=== PATIENT | female | born 1935 | race Caucasian/White ===

== ENCOUNTER 2016-06-12 06:42 | Emergency (ER) | payer OTHER ==
[2016-06-12 06:46] VITALS: BP 142/71; BMI 24.2
[2016-06-12] MEDS ORDERED: NS 1000 ML 1,000 ML ONE (06:59)
[2016-06-12] MEDS ORDERED: MORPHINE SULFATE INJ 4 MG IVP ONE (07:07)
[2016-06-12] MEDS ORDERED: ZOFRAN INJ 4 MG VIAL IVP ONE (07:07)
[2016-06-12] MEDS ORDERED: NS 1000 ML 1,000 ML IV ONE (07:14)
[2016-06-12] MEDS ORDERED: ZOFRAN INJ 4 MG VIAL ONE (07:17)
[2016-06-12] MEDS ORDERED: MORPHINE SULFATE INJ 4 MG ONE (07:17)
--- NOTE | 2016-06-12 07:17 | DR.GENAD ---
HPI - PCP Primary Care Physician: OFELIA - HPI Comment HPI Comment: TOOK PHENERGAN BEFORE COMING. WEAK AND DROUSY. DENIES ABDOMINAL PAIN. HAVE MALAISE. - Complaint/Symptoms Chief Complaint Doctors Comments: FEVER, HEADACHE, N/V TIMES ONE DAY. Chief Complaint:: NAUSEA AND FEVER/ HEADACHE - Nurses notes reviewed Nurses Notes Review: Yes - Source History Provided: Patient, Family Member - Mode of Arrival Mode of Arrival: Wheelchair - Timing Onset of Chief Complaint: 06/11/16 Came on: Suddenly - Duration Duration: Constant Duration: Days - Severity Severity: Moderate <JUAN R ECHEVARRIA - Last Filed: 06/12/16 09:03> PMH - PMH Past Medical History: No Past Surgical History: Yes - Family History History of Family Medical Conditions: No - Social History Does patient currently use any type of tobacco product: No Have you used tobacco products in the last 12 months: No Type of Tobacco Use: None Does any household member use tobacco: No Alcohol Use: None Do you use any recreational Drugs:: No Lives Where: Home - infectious screening In the last 2 months have you had wt loss of >10#?: NO Have you had fever, night sweats or hemotysis?: No Have you traveled outside the country in the last 6 months?: No Isolation: Standard <JUAN R ECHEVARRIA - Last Filed: 06/12/16 09:03> ROS - Review of Systems Constitutional: Fever, Weakness, Fatigue, Loss of Appetite Eyes: No Symptoms Reported ENTM: negative: Ear Pain, Throat Pain Respiratoy: Short of Breath. negative: Productive Cough, Non-Productive Cough, Wheezing, Hemoptysis Cardiovascular: Chest Pain, Palpitations. negative: Edema, Syncope Gastrointestinal/Abdominal: Nausea, Vomiting. negative: Constipation, Diarrhea Genitourinary: negative: Dysuria, Frequency, Hematuria Neurological: Headache, Weakness, Dizziness Musculoskeletal: Muscle Pain Integumentary: Dryness Hematologic/Lymphatic: Easy Bruising Endocrine: No Symptoms Reported All Other Systems: Reviewed and Negative <JUAN R ECHEVARRIA - Last Filed: 06/12/16 09:03> PE - General Limitations: No Limitations, Other (WEAK) General Appearance: Alert - Head Head Exam: Atraumatic - Eyes Eye exam: Normal Appearance - ENT ENT Exam: Normal External Ear Exam External Ear Exam: Normal External Inspection TM/Canal Exam: Bilateral Normal Nose Exam: Normal Nose Exam Mouth Exam: Normal Inspection - Neck Neck Exam: Trachea Midline - Chest Chest Inspection: Normal Inspection - Respiratory Respiratory Exam: Chest Wall Tenderness Respiratory Exam: Bilateral Rhonchi, Lower Rhonchi - Cardiovascular Cardiovascular Exam: Normal Rhythm, Tachycardia, Normal Heart Sounds - Abdominal Exam Abdominal Exam: Normal Bowel Sounds, Soft. negative: Tenderness - Extremities Extremities Exam: Normal Inspection - Back Back Exam: Normal Inspection - Neurologic Neurological Exam: Alert, Oriented X3 - Psychiatric Psychiatric Exam: Normal Affect, Normal Mood - Skin Skin Exam: Dry <JUAN R ECHEVARRIA - Last Filed: 06/12/16 09:03> - Neck Neck Exam: Normal Inspection, Full ROM. negative: Meningismus - Chest Chest Inspection: Symmetric Chest Wall Rise - Respiratory Respiratory Exam: Normal Lung Sounds Bilat <RAPHAEL CORDOVA - Last Filed: 06/12/16 09:49> - Vital Signs Vitals: Temperature 102.1 F Pulse Rate 117 Respiratory Rate 20 Blood Pressure 142/71 O2 Sat by Pulse Oximetry 95 (JUAN R ECHEVARRIA) (RAPHAEL CORDOVA) MDM - Additional Information Additional Information Obtained From: Family - Differential Diagnosis Differential Diagnosis: FEVER, PNEUMONIA, UTI, <JUAN R ECHEVARRIA - Last Filed: 06/12/16 09:03> Course - Treatment Treatment: SEE ORDERS - Education/Counseling Education/Counseling: Patient, Family Educated On: Treatment <JUAN R ECHEVARRIA - Last Filed: 06/12/16 09:03> - Reevaluation 1st: Improved <RAPHAEL CORDOVA - Last Filed: 06/12/16 09:49> ROR - Labs Reviewed Laboratory Results Reviewed?: Yes Result Diagrams: 06/12/16 07:15 06/12/16 07:15 - XRAY XRAY Interpreted by: Radiologist XRAY Findings: REPORT DISCUSS WITH PATIENT AND HER DAUGHTER IN- LAW. - EKG Rhythm: NSR (EKG NOTED) <JUAN R ECHEVARRIA - Last Filed: 06/12/16 09:03> - Labs Reviewed Result Diagrams: 06/12/16 07:15 06/12/16 07:15 <RAPHAEL CORDOVA - Last Filed: 06/12/16 09:49> - Labs Reviewed Laboratory: WBC 14.5 X10^3/uL (3.6-10.0) H 06/12/16 07:15 RBC 4.50 X10^6/uL (3.5-5.4) 06/12/16 07:15 Hgb 13.7 g/dL (12.0-16.0) 06/12/16 07:15 Hct 41.6 % (36.0-47.0) 06/12/16 07:15 MCV 92.5 fL (80.0-100.0) 06/12/16 07:15 MCH 30.6 pg (27.0-34.0) 06/12/16 07:15 MCHC 33.1 g/dL (33.0-35.0) 06/12/16 07:15 RDW 14.5 % (11.6-16.5) 06/12/16 07:15 Plt Count 169 X10^3/uL (150.0-450.0) 06/12/16 07:15 MPV 8.3 fL (7.4-11.0) 06/12/16 07:15 Neut % 86.7 % (42.0-75.0) H 06/12/16 07:15 Lymph % 6.1 % (21.0-51.0) L 06/12/16 07:15 [place] % 6.7 % (0.0-13.0) 06/12/16 07:15 Eos % 0.1 % (0.9-2.9) L 06/12/16 07:15 Baso % 0.4 % (0.2-1.0) 06/12/16 07:15 Neut # 12.6 x10^3/uL (2.2-4.8) H 06/12/16 07:15 Lymph # 0.9 X10^3/uL (1.3-2.9) L 06/12/16 07:15 [place] # 1.0 x10^3/uL (0.3-0.8) H 06/12/16 07:15 Eos # 0.0 x10^3/uL (0.0-0.2) 06/12/16 07:15 Baso # 0.1 X10^3/uL (0.0-0.1) 06/12/16 07:15 Absolute Nucleated RBC 0.0 /100WBC 06/12/16 07:15 Sodium 139 mmol/L (136-145) 06/12/16 07:15 Corrected Sodium 140 mmol/L (136-145) 06/12/16 07:15 Potassium 3.6 mmol/L (3.5-5.1) 06/12/16 07:15 Chloride 100 mmol/L (98-107) 06/12/16 07:15 Carbon Dioxide 30.5 mmol/L (21-32) 06/12/16 07:15 BUN 13 mg/dL (7-18) 06/12/16 07:15 Creatinine 0.95 mg/dL (0.55-1.02) 06/12/16 07:15 Est GFR (MDRD) Af Amer > 60 (>60) 06/12/16 07:15 Est GFR (MDRD) Non-Af > 60 (>60) 06/12/16 07:15 Glucose 125 mg/dL (65-99) H 06/12/16 07:15 Calcium 8.9 mg/dL (8.5-10.1) 06/12/16 07:15 Corrected Calcium TNP 06/12/16 07:15 Total Bilirubin 0.60 mg/dL (0.2-1.0) 06/12/16 07:15 AST 18 Units/L (15-37) 06/12/16 07:15 ALT 23 Units/L (12-78) 06/12/16 07:15 Alkaline Phosphatase 84 Units/L (46-116) 06/12/16 07:15 Creatine Kinase 64 Units/L (26-192) 06/12/16 07:15 CK-MB (CK-2) < 1.0 ng/mL (0-4.0) 06/12/16 07:15 CK/CKMB % Calc 1.6 % (<4) 06/12/16 07:15 Troponin I < 0.02 ng/mL (0-1.5) 06/12/16 07:15 Total Protein 8.0 g/dL (6.4-8.2) 06/12/16 07:15 Albumin 3.9 g/dL (3.4-5.0) 06/12/16 07:15 Globulin 4.1 g/dL (2.5-4.5) 06/12/16 07:15 Albumin/Globulin Ratio 1.0 Ratio (1.1-2.1) L 06/12/16 07:15 Amylase 30 Units/L (25-115) 06/12/16 07:15 Lipase 54 Units/L (73-393) L 06/12/16 07:15 Specimen Type Clean catch urine 06/12/16 07:39 Urine Color Pale yellow (YELLOW) 06/12/16 07:39 Urine Appearance Clear (CLEAR) 06/12/16 07:39 Urine pH 8.0 (5.0 - 8.0) 06/12/16 07:39 Ur Specific [place] 1.015 (1.000-1.030) 06/12/16 07:39 Urine Protein 2+ (NEGATIVE) 06/12/16 07:39 Urine Glucose (UA) Negative (NEGATIVE) 06/12/16 07:39 Urine Ketones Negative (NEGATIVE) 06/12/16 07:39 Urine Occult Blood Negative (NEGATIVE) 06/12/16 07:39 Urine Nitrite Negative (NEGATIVE) 06/12/16 07:39 Urine Bilirubin Negative (NEGATIVE) 06/12/16 07:39 Urine Urobilinogen Normal (NORMAL) 06/12/16 07:39 Ur Leukocyte Esterase Negative (NEGATIVE) 06/12/16 07:39 Urine RBC 0-1 /HPF (NEGATIVE) 06/12/16 07:39 Urine WBC 0-1 /HPF (NEGATIVE) 06/12/16 07:39 Ur Squamous Epith Cells Rare /HPF (NEGATIVE) 06/12/16 07:39 Urine Bacteria Negative /HPF (NEGATIVE) 06/12/16 07:39 Ur Culture Indicated? No/not indicated 06/12/16 07:39 Influenza A (H1N1) PCR Not detected (NOT DETECT) 06/12/16 07:58 Influenza Type A (PCR) Negative (NEGATIVE) 06/12/16 07:58 Influenza Type B (PCR) Negative (NEGATIVE) 06/12/16 07:58 (RAPHAEL CORDOVA) <JUAN R ECHEVARRIA - Last Filed: 06/12/16 09:03> <RAPHAEL CORDOVA - Last Filed: 06/12/16 09:49> - Diagnosis Discharge Problem: Systemic viral illness - Discharge Plan Condition: Stable - Follow ups/Referrals Follow ups/Referrals: Jonathan Loredo [Primary Care Provider] - 3 days - Instructions
[2016-06-12] MEDS ORDERED: TORADOL 30 MG VIAL IVP ONE (07:18)
[2016-06-12] MEDS ORDERED: PEPCID 20 MG IV PREMIX* 20 MG/50 ML BAG IV ONE ×2 (07:18→07:20)
[2016-06-12] MEDS ORDERED: TORADOL 30 MG VIAL ONE (07:20)
[2016-06-12 07:35] LABS: BASOPHILS # (AUTO) 0.1 X10^3/uL (0.0-0.1); BASOPHILS % (AUTO) 0.4 % (0.2-1.0); EOSINOPHILS % (AUTO) 0.1 % (0.9-2.9); HEMATOCRIT 41.6 % (36.0-47.0); HEMOGLOBIN 13.7 g/dL (12.0-16.0); LYMPHOCYTES # (AUTO) 0.9 X10^3/uL (1.3-2.9); LYMPHOCYTES % (AUTO) 6.1 % (21.0-51.0); MEAN CORPUSCULAR HEMOGLOBIN 30.6 pg (27.0-34.0); MEAN CORPUSCULAR HGB CONC 33.1 g/dL (33.0-35.0); MEAN CORPUSCULAR VOLUME 92.5 fL (80.0-100.0); MEAN PLATELET VOLUME 8.3 fL (7.4-11.0); MONOCYTES % (AUTO) 6.7 % (0.0-13.0); NEUTROPHILS # (AUTO) 12.6 x10^3/uL (2.2-4.8); NEUTROPHILS % (AUTO) 86.7 % (42.0-75.0); PLATELET COUNT 169 X10^3/uL (150.0-450.0); RED CELL DISTRIBUTION WIDTH 14.5 % (11.6-16.5); WHITE BLOOD COUNT 14.5 X10^3/uL (3.6-10.0)
[2016-06-12 07:44] LABS: ALANINE AMINOTRANSFERASE 23 Units/L (12-78); ALBUMIN 3.9 g/dL (3.4-5.0); ALKALINE PHOSPHATASE 84 Units/L (46-116); AMYLASE 30 Units/L (25-115); ASPARTATE AMINO TRANSFERASE 18 Units/L (15-37); BLOOD UREA NITROGEN 13 mg/dL (7-18); CALCIUM 8.9 mg/dL (8.5-10.1); CARBON DIOXIDE 30.5 mmol/L (21-32); CHLORIDE 100 mmol/L (98-107); COR NA(FOR HYPERGLY) 140 mmol/L (136-145); CREATININE 0.95 mg/dL (0.55-1.02); GLUCOSE 125 mg/dL (65-99); LIPASE 54 Units/L (73-393); SODIUM 139 mmol/L (136-145); eGFR BLACK RACES > 60 (>60); eGFR NON BLACK RACES > 60 (>60)
[2016-06-12] MEDS ORDERED: TYLENOL 500 MG TAB EXTRA STRENGTH PO ONE (07:45)
[2016-06-12] MEDS ORDERED: TYLENOL 500 MG TAB EXTRA STRENGTH ONE (07:47)
[2016-06-12 07:53] LABS: BILIRUBIN,URINE NEGATIVE (NEGATIVE); BLOOD/HEMOGLOBIN,URINE NEGATIVE (NEGATIVE); GLUCOSE, URINE NEGATIVE (NEGATIVE); KETONES,URINE NEGATIVE (NEGATIVE); LEUKOCYTE ESTERASE ,URINE NEGATIVE (NEGATIVE); NITRITES,URINE NEGATIVE (NEGATIVE); PROTEIN,URINE 2+ (NEGATIVE); UROBILINOGEN,URINE NORMAL (NORMAL)
--- NOTE | 2016-06-12 07:55 | RAD ---
HISTORY: Chest pain, fever, body aches, weakness Study: Single-view chest, done portably Comparison: No priors Technique: patient is rotated towards the right side. Findings: Trachea is midline. There is cardiomegaly with aortic uncoiling. Lungs and pleural spaces are clear. There are surgical clips present in the right axilla. Osseous structures are intact. IMPRESSION: Hypertensive configuration. No acute cardiopulmonary disease. Reported By:
[2016-06-12 08:03] LABS: APPEARANCE,URINE CLEAR (CLEAR); BACTERIA,URINE NEGATIVE /HPF (NEGATIVE); COLOR,URINE PALE YELLOW (YELLOW); RBC,URINE 0-1 /HPF (NEGATIVE); SQUAMOUS EPITHELIAL CELL,UR RARE /HPF (NEGATIVE)
[2016-06-12 08:07] LABS: CKMB % 1.6 % (<4); CREATINE KINASE 64 Units/L (26-192); CREATINE KINASE MB < 1.0 ng/mL (0-4.0); TROPONIN I < 0.02 ng/mL (0-1.5)
== END 2016-06-12 09:55 | disposition home or self-care (01) ==
LOC: ER 06:58
DX: B34.9 Viral infection, unspecified (principal)
CPT/HCPCS: 36415; 71010; 80053; 81001; 82150; 82550; 82553; 83690; 84484; 85025; 87040; 87502; 87503; 93005; 96365; 96374; 96375; 99283; A4222; S0028; J1885; J2270; J2405

== ENCOUNTER 2017-01-25 18:12 | Emergency (ER) | payer OTHER ==
[2017-01-25 18:34] VITALS: BP 154/77; BMI 25.7
--- NOTE | 2017-01-25 18:47 | DR.GENAD ---
HPI - PCP Primary Care Physician: OFELIA - Complaint/Symptoms Chief Complaint:: PT C/O LACERATION TO RT EYE LID AND PAIN IN RT WRIST. PT FELL FACE FIRST AT [facility]. - Source History Provided: Patient - Mode of Arrival Mode of Arrival: EMS - Timing Onset of Chief Complaint: 01/25/17 PMH - PMH Past Medical History: Yes Past Medical History: Hypertension Past Surgical History: Yes Surgical History: Ortho Surgery - Family History History of Family Medical Conditions: No - Social History Does any household member use tobacco: No Alcohol Use: None Do you use any recreational Drugs:: No Lives With: Alone Lives Where: Home - infectious screening In the last 2 months have you had wt loss of >10#?: NO Have you had fever, night sweats or hemotysis?: No Have you traveled outside the country in the last 6 months?: No Isolation: Standard ROS - Review of Systems Eyes: No Symptoms Reported ENTM: No Symptoms Reported Respiratoy: No Symptoms Reported Cardiovascular: No Symptoms Reported Gastrointestinal/Abdominal: No Symptoms Reported Genitourinary: No Symptoms Reported Neurological: No Symptoms Reported Musculoskeletal: See HPI Integumentary: Wound (A 3cm superficial laceration of right eyelid) Hematologic/Lymphatic: No Symptoms Reported Endocrine: No Symptoms Reported Psychiatric: No Symptoms Reported All Other Systems: Reviewed and Negative PE - Vital Signs Vitals: Temperature 97.6 F Pulse Rate 79 Respiratory Rate 18 Blood Pressure 154/77 O2 Sat by Pulse Oximetry 95 - General Limitations: No Limitations General Appearance: Alert, In No Apparent Distress - Head Head Exam: Normal Inspection, Atraumatic - Eyes Eye exam: Other (right outer eye lid with a 3cm superficial laceration) - ENT ENT Exam: Normal Exam External Ear Exam: Normal External Inspection TM/Canal Exam: Bilateral Normal Nose Exam: Normal Nose Exam Mouth Exam: Normal Inspection Throat Exam: Normal Inspection - Neck Neck Exam: Normal Inspection - Chest Chest Inspection: Normal Inspection - Respiratory Respiratory Exam: Normal Lung Sounds Bilat Respiratory Exam: Bilateral Clear to Auscultation - Cardiovascular Cardiovascular Exam: Regular Rate, Normal Rhythm - Abdominal Exam Abdominal Exam: Normal Inspection Abdominal Tenderness: negative: RUQ, RLQ, LUQ, LLQ, Epigastrium, Suprapubic, Diffuse, Mild, Moderate, Severe, Other - Extremities Extremities Exam: Normal Inspection, Full ROM - Back Back Exam: Normal Inspection, Full ROM - Neurologic Neurological Exam: Alert, Oriented X3, CN II-XII Intact - Psychiatric Psychiatric Exam: Normal Affect - Skin Skin Exam: Warm, Dry, Intact Course - Reevaluation 1st: Improved ROR - XRAY XRAY Interpreted by: Radiologist (CT Facial bones: Right periorbital swelling without acute fracture; X Ray right wrist: no acute wrist injury identified. Widening of the navivular lunate space is consistant with old trauma and ligamentous disruption. 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.) Procedures - Laceration/Wound Repair Right Elbow Wound Length (cm): 3 Wound's Depth, Shape: Superficial, Linear Wound Explored: clean Betadine Prep?: Yes Anesthesia: 1% Lidocaine (3) Wound Debrided: minimal Wound Repaired With: sutures Suture Size/Type: 5:0, [place] (4) - Diagnosis Discharge Problem: Right eye lid laceration, right forehead contusion Contusion of wrist, right Qualifiers: Encounter type: initial encounter Qualified Code(s): S60.211A - Contusion of right wrist, initial encounter - Discharge Plan Condition: Stable - Follow ups/Referrals Follow ups/Referrals: Jonathan Loredo [Primary Care Provider] - 3 days - Instructions
--- NOTE | 2017-01-25 19:09 | RAD ---
Examination: Right wrist, three views History: Fell Findings: No acute fracture or dislocation. However there is widening of the scapholunate space and n arrowing of the radiocarpal joint. There is arthritic deformity at the 1st CMC joint, as well as the articulation between the distal scaphoid and the trapezium/trapezoid. There is normal appearance of t he pronator fat plane at the distal radius. Impression: No acute wrist injury identified. Widening of the navicular-lunate space is consistent wi th old trauma and ligamentous disruption. 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 Reported By:
--- NOTE | 2017-01-25 19:18 | CT ---
HISTORY: Fall, laceration above right eye Study: CT facial bones Comparison: None Technique: Multiple axial images of the facial structures were obtained. Dose reduction techniques i ncluding Automated Exposure Control (AEC) and adjustment of mA and kV were utilized. Findings: The visualized intracranial structures are unremarkable. There is soft tissue swelling lateral to the right orbit. The bony orbits appear intact. Globes appear symmetric without injury or proptosis. The visualized paranasal sinuses and mastoid air cells are clear. The mandible appears intact. Streak ar tifact limits evaluation of the oropharynx. The skull base and visualized portions of the cervical sp ine are intact. IMPRESSION: 1. Right periorbital swelling without acute fracture. Reported By:
[2017-01-25] MEDS ORDERED: NEOSPORIN OINT ONE (19:49)
[2017-01-25] MEDS ORDERED: ADACEL TDaP IM ONE (19:50)
[2017-01-25] MEDS ORDERED: NEOSPORIN OINT TOP ONE (19:58)
== END 2017-01-25 20:23 | disposition home or self-care (01) ==
LOC: ER 18:12
PROC: 0WQ20ZZ Repair Face, Open Approach (ICD-10-PCS; principal; 2017-01-25)
DX: S01.111A Laceration without foreign body of right eyelid and periocular area, initial encounter (principal); S00.83XA Contusion of other part of head, initial encounter; S60.211A Contusion of right wrist, initial encounter; W19.XXXA Unspecified fall, initial encounter; Y92.512 Supermarket, store or market as the place of occurrence of the external cause
CPT/HCPCS: 70486; 73100; 90471; 99283

== ENCOUNTER 2017-07-24 19:10 | Observation (INO) | payer OTHER ==
[2017-07-24] MEDS ORDERED: ZOFRAN INJ 4 MG VIAL IVP PRN (20:05)
[2017-07-24 20:31] LABS: BASOPHILS % (AUTO) 0.3 % (0.2-1.0); EOSINOPHILS # (AUTO) 0.3 x10^3/uL (0.0-0.2); EOSINOPHILS % (AUTO) 4.1 % (0.9-2.9); HEMATOCRIT 40.3 % (36.0-47.0); HEMOGLOBIN 13.7 g/dL (12.0-16.0); LYMPHOCYTES # (AUTO) 0.6 X10^3/uL (1.3-2.9); LYMPHOCYTES % (AUTO) 8.9 % (21.0-51.0); MEAN CORPUSCULAR HEMOGLOBIN 31.8 pg (27.0-34.0); MEAN CORPUSCULAR VOLUME 93.5 fL (80.0-100.0); MEAN PLATELET VOLUME 8.4 fL (7.4-11.0); MONOCYTES # (AUTO) 0.5 x10^3/uL (0.3-0.8); MONOCYTES % (AUTO) 6.9 % (0.0-13.0); NEUTROPHILS # (AUTO) 5.6 x10^3/uL (2.2-4.8); NEUTROPHILS % (AUTO) 79.8 % (42.0-75.0); PLATELET COUNT 169 X10^3/uL (150.0-450.0); RED BLOOD COUNT 4.31 X10^6/uL (3.5-5.4); RED CELL DISTRIBUTION WIDTH 13.7 % (11.6-16.5)
[2017-07-24 20:38] LABS: ALANINE AMINOTRANSFERASE 21 Units/L (12-78); ALBUMIN 3.7 g/dL (3.4-5.0); ALKALINE PHOSPHATASE 103 Units/L (46-116); AMYLASE 82 Units/L (25-115); ASPARTATE AMINO TRANSFERASE 18 Units/L (15-37); BLOOD UREA NITROGEN 26 mg/dL (7-18); CARBON DIOXIDE 29.6 mmol/L (21-32); CHLORIDE 102 mmol/L (98-107); COR NA(FOR HYPERGLY) 140 mmol/L (136-145); CREATININE 1.08 mg/dL (0.55-1.02); LIPASE 172 Units/L (73-393); SODIUM 139 mmol/L (136-145); TOTAL PROTEIN 7.8 g/dL (6.4-8.2); eGFR BLACK RACES > 60 (>60); eGFR NON BLACK RACES 52 (>60)
[2017-07-24] MEDS: NS 1000 ML 1,000 ML IV SCH (20:56)
[2017-07-24 21:24] LABS: BILIRUBIN,URINE NEGATIVE (NEGATIVE); BLOOD/HEMOGLOBIN,URINE NEGATIVE (NEGATIVE); GLUCOSE, URINE NEGATIVE (NEGATIVE); KETONES,URINE NEGATIVE (NEGATIVE); LEUKOCYTE ESTERASE ,URINE NEGATIVE (NEGATIVE); NITRITES,URINE NEGATIVE (NEGATIVE); PH,URINE 6.5 (5.0 - 8.0); PROTEIN,URINE NEGATIVE (NEGATIVE); UROBILINOGEN,URINE NORMAL (NORMAL)
[2017-07-24 21:32] LABS: APPEARANCE,URINE CLEAR (CLEAR); COLOR,URINE YELLOW (YELLOW)
[2017-07-24 21:33] VITALS: BMI 26.4
[2017-07-24] MEDS: SEROquel TAB 100 MG PO SCH (22:29)
[2017-07-24] MEDS: KLONOPIN TAB 1 MG PO SCH (22:29)
[2017-07-25 05:20] LABS: ALANINE AMINOTRANSFERASE 16 Units/L (12-78); ALKALINE PHOSPHATASE 82 Units/L (46-116); ASPARTATE AMINO TRANSFERASE 15 Units/L (15-37); BLOOD UREA NITROGEN 19 mg/dL (7-18); CALCIUM 7.3 mg/dL (8.5-10.1); CARBON DIOXIDE 28.5 mmol/L (21-32); CHLORIDE 104 mmol/L (98-107); COR CA(FOR HYPOALB) 8.1 mg/dL (8.5-10.1); COR NA(FOR HYPERGLY) 140 mmol/L (136-145); CREATININE 0.87 mg/dL (0.55-1.02); SODIUM 140 mmol/L (136-145); TOTAL PROTEIN 6.4 g/dL (6.4-8.2); eGFR BLACK RACES > 60 (>60); eGFR NON BLACK RACES > 60 (>60)
[2017-07-25 05:27] LABS: BASOPHILS % (AUTO) 0.4 % (0.2-1.0); EOSINOPHILS # (AUTO) 0.2 x10^3/uL (0.0-0.2); EOSINOPHILS % (AUTO) 3.3 % (0.9-2.9); HEMATOCRIT 37.2 % (36.0-47.0); HEMOGLOBIN 12.6 g/dL (12.0-16.0); LYMPHOCYTES # (AUTO) 0.8 X10^3/uL (1.3-2.9); LYMPHOCYTES % (AUTO) 13.3 % (21.0-51.0); MEAN CORPUSCULAR HEMOGLOBIN 31.5 pg (27.0-34.0); MEAN CORPUSCULAR HGB CONC 33.9 g/dL (33.0-35.0); MEAN CORPUSCULAR VOLUME 92.9 fL (80.0-100.0); MEAN PLATELET VOLUME 8.6 fL (7.4-11.0); MONOCYTES # (AUTO) 0.4 x10^3/uL (0.3-0.8); MONOCYTES % (AUTO) 6.4 % (0.0-13.0); NEUTROPHILS # (AUTO) 4.4 x10^3/uL (2.2-4.8); NEUTROPHILS % (AUTO) 76.6 % (42.0-75.0); PLATELET COUNT 152 X10^3/uL (150.0-450.0); RED CELL DISTRIBUTION WIDTH 13.6 % (11.6-16.5); WHITE BLOOD COUNT 5.7 X10^3/uL (3.6-10.0)
[2017-07-25] MEDS: NS 1000 ML 1,000 ML IV SCH ×3 (07:07→23:45)
[2017-07-25] MEDS ORDERED: TYLENOL 325 MG TAB PO PRN (08:57)
[2017-07-25] MEDS ORDERED: PATIENT'S HOME MEDICATION (Alprazolam [Alprazolam] 1 TAB) PO PRN (09:37)
[2017-07-25] MEDS ORDERED: LEXAPRO ONE (10:51)
--- NOTE | 2017-07-25 10:51 | RAD ---
Examination: Chest x-ray. Clinical history: Shortness of breath, weakness. Technique: A single portable AP view of the chest was obtained. Comparison: 06/12/2016. Findings: The chest is rotated. The cardiac silhouette appears enlarged. The cardiac silhouette size may be accentuated by the AP pro jection. No pneumothorax or pleural effusion is noted. The lungs appear clear. There is a mild thoracic scoliosis seen convex to the right, which may be positional in nature. The b ones appear diffusely osteopenic. Degenerative changes are noted in the spine. No acute osseous abnor mality is noted. Surgical clips are seen in the right axillary region. Impression: 1. The cardiac silhouette appears enlarged. The cardiac silhouette size may be accentuated by the AP projection. Reported By:
[2017-07-25] MEDS: PriLOSEC PO SCH (11:00)
[2017-07-25] MEDS: LEXAPRO PO SCH (11:00)
[2017-07-25] MEDS: ZOCOR TAB 40 MG PO SCH (11:01)
[2017-07-25] MEDS: IRBESARTAN PO SCH (11:01)
[2017-07-25] MEDS: LETROZOLE PO SCH (11:01)
[2017-07-25] MEDS ORDERED: MAALOX or MYLANTA PO PRN (21:43)
[2017-07-25] MEDS: XANAX PO PRN (22:00)
[2017-07-25] MEDS: KLONOPIN TAB 1 MG PO SCH (22:01)
[2017-07-25] MEDS: SEROquel TAB 100 MG PO SCH (22:01)
[2017-07-25] MEDS: NORVASC TAB 10 MG PO SCH (22:01)
[2017-07-26] MEDS: NS 1000 ML 1,000 ML IV SCH ×3 (05:50→21:28)
[2017-07-26 06:44] LABS: ALANINE AMINOTRANSFERASE 17 Units/L (12-78); ALBUMIN 2.6 g/dL (3.4-5.0); ALKALINE PHOSPHATASE 91 Units/L (46-116); ASPARTATE AMINO TRANSFERASE 15 Units/L (15-37); BLOOD UREA NITROGEN 14 mg/dL (7-18); CALCIUM 7.5 mg/dL (8.5-10.1); CARBON DIOXIDE 31.8 mmol/L (21-32); CHLORIDE 108 mmol/L (98-107); COR CA(FOR HYPOALB) 8.6 mg/dL (8.5-10.1); CREATININE 0.81 mg/dL (0.55-1.02); SODIUM 143 mmol/L (136-145); TOTAL PROTEIN 5.7 g/dL (6.4-8.2); eGFR BLACK RACES > 60 (>60); eGFR NON BLACK RACES > 60 (>60)
[2017-07-26 06:45] LABS: BASOPHILS % (AUTO) 0.8 % (0.2-1.0); EOSINOPHILS # (AUTO) 0.3 x10^3/uL (0.0-0.2); EOSINOPHILS % (AUTO) 5.1 % (0.9-2.9); HEMATOCRIT 34.5 % (36.0-47.0); HEMOGLOBIN 11.6 g/dL (12.0-16.0); LYMPHOCYTES # (AUTO) 1.5 X10^3/uL (1.3-2.9); LYMPHOCYTES % (AUTO) 28.4 % (21.0-51.0); MEAN CORPUSCULAR HEMOGLOBIN 31.6 pg (27.0-34.0); MEAN CORPUSCULAR HGB CONC 33.7 g/dL (33.0-35.0); MEAN CORPUSCULAR VOLUME 93.8 fL (80.0-100.0); MEAN PLATELET VOLUME 8.4 fL (7.4-11.0); MONOCYTES # (AUTO) 0.7 x10^3/uL (0.3-0.8); MONOCYTES % (AUTO) 12.8 % (0.0-13.0); NEUTROPHILS # (AUTO) 2.7 x10^3/uL (2.2-4.8); NEUTROPHILS % (AUTO) 52.9 % (42.0-75.0); PLATELET COUNT 134 X10^3/uL (150.0-450.0); RED BLOOD COUNT 3.68 X10^6/uL (3.5-5.4); RED CELL DISTRIBUTION WIDTH 13.9 % (11.6-16.5); WHITE BLOOD COUNT 5.2 X10^3/uL (3.6-10.0)
[2017-07-26] MEDS ORDERED: LEXAPRO ONE (09:22)
[2017-07-26] MEDS: LETROZOLE PO SCH (09:24)
[2017-07-26] MEDS: IRBESARTAN PO SCH (09:24)
[2017-07-26] MEDS: LEXAPRO PO SCH (09:25)
[2017-07-26] MEDS: ZOCOR TAB 40 MG PO SCH (09:25)
[2017-07-26] MEDS: PriLOSEC PO SCH (09:25)
--- NOTE | 2017-07-26 18:37 | DR.UPDATE ---
H&P Update History and Physical Update: WAS SEEN IN THE OFFICE ON 07/24/2017. A H&P WAS COMPLETED PRIOR TO ADMISSION. PATIENT HAS BEEN SEEN AND EXAMINED WITH NO CHANGES NOTED TO H&P. Changes noted: NO Yes with the following:
--- NOTE | 2017-07-26 19:31 | PCM.PROG ---
Progress Note - Progress Note for Day of Date: 07/25/17 - Subjective Subjective: WAS ADMITTED FOR DEHYDRATION, NAUSEA, FEVER, AND GENERALIZED WEAKNESS. TODAY, SHE IS ALERT AND ORIENTED, LYING IN BED ON MORNING ROUNDS. SHE CONTINUES WITH NAUSEA AND GENERALIZED WEAKNESS. HER VITALS TODAY ARE 97.9-109-20-92% RA-134/71. LABS WERE OBTAINED TODAY. ABNORMAL LAB VALUES INCLUDE THE FOLLOWING: BUN 19, GLUCOSE 120, CALCIUM 7.3, ALBUMIN 3.0. BLOOD CULTURES ARE PENDING. PATIENT HAS REMAINED AFEBRILE THROUGHOUT THE NIGHT. TODAY , WE WILL CONTINUE WITH IV HYDRATION AND CURRENT PLAN OF CARE. OTHERWISE, WE WILL FOLLOW UP WITH AM LABS AND CONTINUE TO MONITOR PATIENT. - Past Medical Family Social History Past Med/Fam/Surg Hx: No changes since H&P Allergies: Allergies No Known Drug Allergies Allergy (Verified 01/25/17 18:13) - Review of Systems ROS: No change since H&P - Vital Signs and I&O's Vital Signs: Temperature 97.8 F Pulse Rate [Right Radial] 77 Respiratory Rate 18 Blood Pressure [Right Arm] 116/57 Blood Pressure 154/77 O2 Sat by Pulse Oximetry 92 Intake and Output: Intake & Output 07/24/17 07/25/17 07/26/17 07/27/17 11:59 11:59 11:59 11:59 Intake Total 741 770 360 Balance 741 770 360 - Physical Exam Oriented: Normal Eyes: Normal Ear: Normal Nose: Normal Throat: Normal Respiratory: Normal Cardiovascular: Normal. negative: S3, S4, Murmur, Edema : Normal Auscultation: Bowel Sounds: Normal Palpation: Normal Tenderness: Normal Skin: Normal Musculoskeletal: Normal Psychiatric: Normal Mood Description: Calm Affect: Normal Speech Pattern: Clear, Appropriate - Laboratory and Diagnostics Result Diagrams: 07/26/17 05:22 07/26/17 05:22 Labs: 07/24/17 21:17 Urine,Clean Catch Urine Culture - Final 07/24/17 20:18 Blood Blood Culture - Preliminary 07/24/17 20:14 Blood Blood Culture - Preliminary Laboratory WBC 5.2 X10^3/uL (3.6-10.0) 07/26/17 05:22 RBC 3.68 X10^6/uL (3.5-5.4) 07/26/17 05:22 Hgb 11.6 g/dL (12.0-16.0) L 07/26/17 05:22 Hct 34.5 % (36.0-47.0) L 07/26/17 05:22 MCV 93.8 fL (80.0-100.0) 07/26/17 05:22 MCH 31.6 pg (27.0-34.0) 07/26/17 05:22 MCHC 33.7 g/dL (33.0-35.0) 07/26/17 05:22 RDW 13.9 % (11.6-16.5) 07/26/17 05:22 Plt Count 134 X10^3/uL (150.0-450.0) L 07/26/17 05:22 MPV 8.4 fL (7.4-11.0) 07/26/17 05:22 Neut % (Auto) 52.9 % (42.0-75.0) 07/26/17 05:22 Lymph % (Auto) 28.4 % (21.0-51.0) 07/26/17 05:22 [place] % (Auto) 12.8 % (0.0-13.0) 07/26/17 05:22 Eos % (Auto) 5.1 % (0.9-2.9) H 07/26/17 05:22 Baso % (Auto) 0.8 % (0.2-1.0) 07/26/17 05:22 Neut # (Auto) 2.7 x10^3/uL (2.2-4.8) 07/26/17 05:22 Lymph # (Auto) 1.5 X10^3/uL (1.3-2.9) 07/26/17 05:22 [place] # (Auto) 0.7 x10^3/uL (0.3-0.8) 07/26/17 05:22 Eos # (Auto) 0.3 x10^3/uL (0.0-0.2) H 07/26/17 05:22 Baso # (Auto) 0.0 X10^3/uL (0.0-0.1) 07/26/17 05:22 Absolute Nucleated RBC 0.1 /100WBC 07/26/17 05:22 Sodium 143 mmol/L (136-145) 07/26/17 05:22 Corrected Sodium TNP 07/26/17 05:22 Potassium 3.5 mmol/L (3.5-5.1) 07/26/17 05:22 Chloride 108 mmol/L (98-107) H 07/26/17 05:22 Carbon Dioxide 31.8 mmol/L (21-32) 07/26/17 05:22 BUN 14 mg/dL (7-18) 07/26/17 05:22 Creatinine 0.81 mg/dL (0.55-1.02) 07/26/17 05:22 Est GFR (MDRD) Af Amer > 60 (>60) 07/26/17 05:22 Est GFR (MDRD) Non-Af > 60 (>60) 07/26/17 05:22 Glucose 93 mg/dL (65-99) 07/26/17 05:22 Hemoglobin A1c 6.0 % 07/25/17 05:00 Calcium 7.5 mg/dL (8.5-10.1) L 07/26/17 05:22 Corrected Calcium 8.6 mg/dL (8.5-10.1) 07/26/17 05:22 Total Bilirubin 0.30 mg/dL (0.2-1.0) 07/26/17 05:22 AST 15 Units/L (15-37) 07/26/17 05:22 ALT 17 Units/L (12-78) 07/26/17 05:22 Alkaline Phosphatase 91 Units/L (46-116) 07/26/17 05:22 Total Protein 5.7 g/dL (6.4-8.2) L 07/26/17 05:22 Albumin 2.6 g/dL (3.4-5.0) L 07/26/17 05:22 Globulin 3.1 g/dL (2.5-4.5) 07/26/17 05:22 Albumin/Globulin Ratio 0.8 Ratio (1.1-2.1) L 07/26/17 05:22 Amylase 82 Units/L (25-115) 07/24/17 20:14 Lipase 172 Units/L (73-393) 07/24/17 20:14 Specimen Type Clean catch urine 07/24/17 21:17 Urine Color Yellow (YELLOW) 07/24/17 21:17 Urine Appearance Clear (CLEAR) 07/24/17 21:17 Urine pH 6.5 (5.0 - 8.0) 07/24/17 21:17 Ur Specific [place] 1.005 (1.000-1.030) 07/24/17 21:17 Urine Protein Negative (NEGATIVE) 07/24/17 21:17 Urine Glucose (UA) Negative (NEGATIVE) 07/24/17 21:17 Urine Ketones Negative (NEGATIVE) 07/24/17 21:17 Urine Occult Blood Negative (NEGATIVE) 07/24/17 21:17 Urine Nitrite Negative (NEGATIVE) 07/24/17 21:17 Urine Bilirubin Negative (NEGATIVE) 07/24/17 21:17 Urine Urobilinogen Normal (NORMAL) 07/24/17 21:17 Ur Leukocyte Esterase Negative (NEGATIVE) 07/24/17 21:17 - Plan (1) Dehydration Status: Acute Plan: NORMAL SALINE AT 80ML/HR, CONTINUE TO MONITOR (2) Generalized weakness Status: Acute
--- NOTE | 2017-07-26 20:39 | PCM.PROG ---
Progress Note - Progress Note for Day of Date: 07/26/17 - Subjective Subjective: WAS ADMITTED FOR DEHYDRATION, NAUSEA, FEVER, AND GENERALIZED WEAKNESS. TODAY, SHE IS ALERT AND ORIENTED, LYING IN BED ON MORNING ROUNDS. SHE CONTINUES WITH GENERALIZED WEAKNESS, BUT REPORTS SLIGHT IMPROVEMENT SINCE YESTERDAY. HER VITALS TODAY ARE 98.0-81-20-93%-133/81. LABS WERE OBTAINED TODAY. ABNORMAL LAB VALUES INCLUDE THE FOLLOWING: hgb 11.6, hct 34.5, chloride 108, calcium 7.5, total protein 5.7, albumin 2.6. BLOOD CULTURES ARE PENDING. TODAY, WE WILL CONTINUE WITH IV HYDRATION AND CURRENT PLAN OF CARE. OTHERWISE, WE WILL FOLLOW UP WITH AM LABS AND CONTINUE TO MONITOR PATIENT. WE PLAN FOR DISCHARGE TOMORROW MORNING IF PATIENT REMAINS STABLE. - Past Medical Family Social History Past Med/Fam/Surg Hx: No changes since H&P Allergies: Allergies No Known Drug Allergies Allergy (Verified 01/25/17 18:13) - Review of Systems ROS: No change since H&P - Vital Signs and I&O's Vital Signs: Temperature 97.8 F Pulse Rate [Right Radial] 77 Respiratory Rate 18 Blood Pressure [Right Arm] 116/57 Blood Pressure 154/77 O2 Sat by Pulse Oximetry 92 Intake and Output: Intake & Output 07/24/17 07/25/17 07/26/17 07/27/17 11:59 11:59 11:59 11:59 Intake Total 741 770 360 Balance 741 770 360 - Physical Exam Oriented: Normal Eyes: Normal Ear: Normal Nose: Normal Throat: Normal Respiratory: Normal Cardiovascular: Normal. negative: S3, S4, Murmur, Edema : Normal Auscultation: Bowel Sounds: Normal Palpation: Normal Tenderness: Normal Skin: Normal Musculoskeletal: Normal Psychiatric: Normal Mood Description: Calm Affect: Normal Speech Pattern: Clear, Appropriate - Laboratory and Diagnostics Result Diagrams: 07/26/17 05:22 07/26/17 05:22 Labs: 07/24/17 21:17 Urine,Clean Catch Urine Culture - Final 07/24/17 20:18 Blood Blood Culture - Preliminary 07/24/17 20:14 Blood Blood Culture - Preliminary Laboratory WBC 5.2 X10^3/uL (3.6-10.0) 07/26/17 05:22 RBC 3.68 X10^6/uL (3.5-5.4) 07/26/17 05:22 Hgb 11.6 g/dL (12.0-16.0) L 07/26/17 05:22 Hct 34.5 % (36.0-47.0) L 07/26/17 05:22 MCV 93.8 fL (80.0-100.0) 07/26/17 05:22 MCH 31.6 pg (27.0-34.0) 07/26/17 05:22 MCHC 33.7 g/dL (33.0-35.0) 07/26/17 05:22 RDW 13.9 % (11.6-16.5) 07/26/17 05:22 Plt Count 134 X10^3/uL (150.0-450.0) L 07/26/17 05:22 MPV 8.4 fL (7.4-11.0) 07/26/17 05:22 Neut % (Auto) 52.9 % (42.0-75.0) 07/26/17 05:22 Lymph % (Auto) 28.4 % (21.0-51.0) 07/26/17 05:22 [place] % (Auto) 12.8 % (0.0-13.0) 07/26/17 05:22 Eos % (Auto) 5.1 % (0.9-2.9) H 07/26/17 05:22 Baso % (Auto) 0.8 % (0.2-1.0) 07/26/17 05:22 Neut # (Auto) 2.7 x10^3/uL (2.2-4.8) 07/26/17 05:22 Lymph # (Auto) 1.5 X10^3/uL (1.3-2.9) 07/26/17 05:22 [place] # (Auto) 0.7 x10^3/uL (0.3-0.8) 07/26/17 05:22 Eos # (Auto) 0.3 x10^3/uL (0.0-0.2) H 07/26/17 05:22 Baso # (Auto) 0.0 X10^3/uL (0.0-0.1) 07/26/17 05:22 Absolute Nucleated RBC 0.1 /100WBC 07/26/17 05:22 Sodium 143 mmol/L (136-145) 07/26/17 05:22 Corrected Sodium TNP 07/26/17 05:22 Potassium 3.5 mmol/L (3.5-5.1) 07/26/17 05:22 Chloride 108 mmol/L (98-107) H 07/26/17 05:22 Carbon Dioxide 31.8 mmol/L (21-32) 07/26/17 05:22 BUN 14 mg/dL (7-18) 07/26/17 05:22 Creatinine 0.81 mg/dL (0.55-1.02) 07/26/17 05:22 Est GFR (MDRD) Af Amer > 60 (>60) 07/26/17 05:22 Est GFR (MDRD) Non-Af > 60 (>60) 07/26/17 05:22 Glucose 93 mg/dL (65-99) 07/26/17 05:22 Hemoglobin A1c 6.0 % 07/25/17 05:00 Calcium 7.5 mg/dL (8.5-10.1) L 07/26/17 05:22 Corrected Calcium 8.6 mg/dL (8.5-10.1) 07/26/17 05:22 Total Bilirubin 0.30 mg/dL (0.2-1.0) 07/26/17 05:22 AST 15 Units/L (15-37) 07/26/17 05:22 ALT 17 Units/L (12-78) 07/26/17 05:22 Alkaline Phosphatase 91 Units/L (46-116) 07/26/17 05:22 Total Protein 5.7 g/dL (6.4-8.2) L 07/26/17 05:22 Albumin 2.6 g/dL (3.4-5.0) L 07/26/17 05:22 Globulin 3.1 g/dL (2.5-4.5) 07/26/17 05:22 Albumin/Globulin Ratio 0.8 Ratio (1.1-2.1) L 07/26/17 05:22 Amylase 82 Units/L (25-115) 07/24/17 20:14 Lipase 172 Units/L (73-393) 07/24/17 20:14 Specimen Type Clean catch urine 07/24/17 21:17 Urine Color Yellow (YELLOW) 07/24/17 21:17 Urine Appearance Clear (CLEAR) 07/24/17 21:17 Urine pH 6.5 (5.0 - 8.0) 07/24/17 21:17 Ur Specific [place] 1.005 (1.000-1.030) 07/24/17 21:17 Urine Protein Negative (NEGATIVE) 07/24/17 21:17 Urine Glucose (UA) Negative (NEGATIVE) 07/24/17 21:17 Urine Ketones Negative (NEGATIVE) 07/24/17 21:17 Urine Occult Blood Negative (NEGATIVE) 07/24/17 21:17 Urine Nitrite Negative (NEGATIVE) 07/24/17 21:17 Urine Bilirubin Negative (NEGATIVE) 07/24/17 21:17 Urine Urobilinogen Normal (NORMAL) 07/24/17 21:17 Ur Leukocyte Esterase Negative (NEGATIVE) 07/24/17 21:17 - Plan (1) Dehydration Status: Acute Plan: NORMAL SALINE AT 80ML/HR, CONTINUE TO MONITOR (2) Generalized weakness Status: Acute
[2017-07-26] MEDS: NORVASC TAB 10 MG PO SCH (21:28)
[2017-07-26] MEDS: KLONOPIN TAB 1 MG PO SCH (21:28)
[2017-07-26] MEDS: XANAX PO PRN (21:28)
[2017-07-26] MEDS: SEROquel TAB 100 MG PO SCH (21:29)
[2017-07-27] MEDS: NS 1000 ML 1,000 ML IV SCH (06:15)
[2017-07-27 06:22] LABS: BASOPHILS % (AUTO) 0.7 % (0.2-1.0); EOSINOPHILS # (AUTO) 0.3 x10^3/uL (0.0-0.2); EOSINOPHILS % (AUTO) 8.1 % (0.9-2.9); HEMATOCRIT 34.6 % (36.0-47.0); HEMOGLOBIN 11.7 g/dL (12.0-16.0); LYMPHOCYTES # (AUTO) 1.9 X10^3/uL (1.3-2.9); LYMPHOCYTES % (AUTO) 47.4 % (21.0-51.0); MEAN CORPUSCULAR HEMOGLOBIN 31.7 pg (27.0-34.0); MEAN CORPUSCULAR HGB CONC 33.8 g/dL (33.0-35.0); MEAN CORPUSCULAR VOLUME 93.8 fL (80.0-100.0); MEAN PLATELET VOLUME 8.7 fL (7.4-11.0); MONOCYTES # (AUTO) 0.6 x10^3/uL (0.3-0.8); MONOCYTES % (AUTO) 14.7 % (0.0-13.0); NEUTROPHILS # (AUTO) 1.2 x10^3/uL (2.2-4.8); NEUTROPHILS % (AUTO) 29.1 % (42.0-75.0); PLATELET COUNT 133 X10^3/uL (150.0-450.0); RED BLOOD COUNT 3.69 X10^6/uL (3.5-5.4); RED CELL DISTRIBUTION WIDTH 13.7 % (11.6-16.5); WHITE BLOOD COUNT 4.1 X10^3/uL (3.6-10.0)
[2017-07-27 06:33] LABS: ALANINE AMINOTRANSFERASE 18 Units/L (12-78); ALBUMIN 2.9 g/dL (3.4-5.0); ALKALINE PHOSPHATASE 78 Units/L (46-116); ASPARTATE AMINO TRANSFERASE 17 Units/L (15-37); BLOOD UREA NITROGEN 8 mg/dL (7-18); CALCIUM 8.2 mg/dL (8.5-10.1); CHLORIDE 108 mmol/L (98-107); COR CA(FOR HYPOALB) 9.1 mg/dL (8.5-10.1); CREATININE 0.78 mg/dL (0.55-1.02); SODIUM 143 mmol/L (136-145); TOTAL PROTEIN 6.2 g/dL (6.4-8.2); eGFR BLACK RACES > 60 (>60); eGFR NON BLACK RACES > 60 (>60)
[2017-07-27] MEDS ORDERED: MILK OF MAGNESIA PO SCH (09:00)
[2017-07-27] MEDS ORDERED: COLACE CAP 100 MG PO SCH (09:00)
[2017-07-27] MEDS ORDERED: LEXAPRO ONE (09:13)
[2017-07-27] MEDS: LEXAPRO PO SCH (09:16)
[2017-07-27] MEDS: PriLOSEC PO SCH (09:17)
[2017-07-27] MEDS: LETROZOLE PO SCH (09:17)
[2017-07-27] MEDS: ZOCOR TAB 40 MG PO SCH (09:17)
[2017-07-27] MEDS: IRBESARTAN PO SCH (09:17)
[2017-07-27 10:51] VITALS: BP 126/69
== END 2017-07-27 11:40 | disposition home or self-care (01) ==
LOC: MED/SURG 19:10
PROVIDERS: ADMIT Internal Medicine; ATTEND Internal Medicine
DX: E86.0 Dehydration (principal); R53.1 Weakness; K52.89 Other specified noninfective gastroenteritis and colitis; M19.90 Unspecified osteoarthritis, unspecified site; Z85.3 Personal history of malignant neoplasm of breast; I10 Essential (primary) hypertension; F41.9 Anxiety disorder, unspecified; R11.0 Nausea; R50.9 Fever, unspecified
CPT/HCPCS: 36415; 71045; 80053; 81003; 82150; 83036; 83690; 85025; 87040; 87086; 99217; A4216; A4222; G8978; G8979; G8987; G8988; G0378

== ENCOUNTER 2018-04-08 13:55 | Observation (INO) ==
--- NOTE | 2018-04-08 14:51 | DR.EXTPAIN ---
HPI Time seen Time Seen by Provider: 04/08/18 14:39 PCP Primary Care Physician: OFELIA HPI Comment HPI Comment: PATIENT SAID SHE WAS UNABLE TO GET UP. DENIES HIP PAIN. DID NOT HIT HER HEAD. Complaint/Symptoms Chief Complaint Doctor Comments: FEEL AND INJURED BOTH KNEE. Chief Complaint:: PT C/O BILAT KNEE WEAKNESS. PT STATES SHE HAS BEEN HAVING PROBLEMS WITH HER KNEES AND HAS BEEN SEEING DR GILBERT ABOUT THIS ISSUE. PT HAS BEEN VERY ANXIOUS AND WORRIED ABOUT NOT BEING ABLE WALK AND LIVING BY HIMSELF. Nurses notes reviewed Nurses Notes Review: Yes Source History Provided: Patient and EMS Mode of arrival Mode of Arrival: EMS Timing Onset of Chief Complaint: 04/06/18 Context History of: Arthritis Associated signs and symptoms Associated Signs and Symptoms: Pain (KNEES), Swelling and Abnormal Bite (KNEES.) PMH PMH Past Medical History: Yes Past Medical History: Anxiety and Hypertension Past Surgical History: No Family History History of Family Medical Conditions: Yes Family Medical History: Hypertension Social History Does any household member use tobacco: No Alcohol Use: None Do you use any recreational Drugs:: No Lives With: Family Lives Where: Home infectious screening In the last 2 months have you had wt loss of >10#?: NO Have you had fever, night sweats or hemotysis?: No Have you traveled outside the country in the last 6 months?: No Isolation: Standard ROS Review of Systems Constitutional: Weakness Eyes: No Symptoms Reported ENTM: No Symptoms Reported Respiratoy: No Symptoms Reported Cardiovascular: No Symptoms Reported Gastrointestinal/Abdominal: No Symptoms Reported Genitourinary: No Symptoms Reported Neurological: No Symptoms Reported Musculoskeletal: Back Pain, Right, Left and Knee Integumentary: No Symptoms Reported Hematologic/Lymphatic: Easy Bleeding and Easy Bruising Endocrine: No Symptoms Reported Psychiatric: No Symptoms Reported All Other Systems: Reviewed and Negative PE Vital Signs Vitals: Temperature 97.0 F Pulse Rate [Right Radial] 81 Pulse Rate 115 Respiratory Rate 18 Blood Pressure [Right Arm] 192/85 Blood Pressure 134/86 O2 Sat by Pulse Oximetry 98 General Limitations: No Limitations General Appearance: Alert and In No Apparent Distress Head Head Exam: Normal Inspection Eyes Eye exam: Normal Appearance ENT ENT Exam: Normal Exam Neck Neck Exam: Normal Inspection Chest Chest Inspection: Symmetric Chest Wall Rise Respiratory Respiratory Exam: Normal Lung Sounds Bilat Respiratory Exam: Bilateral: Clear to Auscultation Cardiovascular Cardiovascular Exam: Regular Rate and Normal Rhythm Abdominal Exam Abdominal Exam: Normal Inspection and Normal Bowel Sounds Extremities Extremities Exam: Tenderness (KNEES SWOLLEN AND TENDER. ROM DECREASE.) Back Back Exam: Paraspinal Tenderness Neurological Neurological Exam: Alert and Oriented X3; negative Motor Sensory Deficit Psychiatric Psychiatric Exam: Normal Affect and Normal Mood Skin Skin Exam: Warm, Intact and Normal Color MDM Differential Diagnosis Differential Diagnosis: Contusion, Fracture and Sprain COURSE Treatment Treatment: SEE ORDERS. Education/Counseling Education/Counseling: Patient and Family Educated On: Diagnosis and Needs for Follow Up ROR Labs Reviewed Laboratory Results Reviewed?: Yes Result Diagrams: 04/08/18 20:45 04/08/18 20:45 Laboratory: WBC 11.7 X10^3/uL (3.6-10.0) H 04/08/18 20:45 RBC 4.03 X10^6/uL (3.5-5.4) 04/08/18 20:45 Hgb 13.1 g/dL (12.0-16.0) 04/08/18 20:45 Hct 39.2 % (36.0-47.0) 04/08/18 20:45 MCV 97.2 fL (80.0-100.0) 04/08/18 20:45 MCH 32.4 pg (27.0-34.0) 04/08/18 20:45 MCHC 33.3 g/dL (33.0-35.0) 04/08/18 20:45 RDW 13.2 % (11.6-16.5) 04/08/18 20:45 Plt Count 173 X10^3/uL (150.0-450.0) 04/08/18 20:45 MPV 8.4 fL (7.4-11.0) 04/08/18 20:45 Neut % (Auto) 80.1 % (42.0-75.0) H 04/08/18 20:45 Lymph % (Auto) 10.3 % (21.0-51.0) L 04/08/18 20:45 [place]ock % (Auto) 8.7 % (0.0-13.0) 04/08/18 20:45 Eos % (Auto) 0.2 % (0.9-2.9) L 04/08/18 20:45 Baso % (Auto) 0.7 % (0.2-1.0) 04/08/18 20:45 Neut # (Auto) 9.4 x10^3/uL (2.2-4.8) H 04/08/18 20:45 Lymph # (Auto) 1.2 X10^3/uL (1.3-2.9) L 04/08/18 20:45 [place] # (Auto) 1.0 x10^3/uL (0.3-0.8) H 04/08/18 20:45 Eos # (Auto) 0.0 x10^3/uL (0.0-0.2) 04/08/18 20:45 Baso # (Auto) 0.1 X10^3/uL (0.0-0.1) 04/08/18 20:45 Absolute Nucleated RBC 0.0 /100WBC 04/08/18 20:45 Sodium 133 mmol/L (136-145) L 04/08/18 20:45 Corrected Sodium 134 mmol/L (136-145) L 04/08/18 20:45 Potassium 4.2 mmol/L (3.5-5.1) 04/08/18 20:45 Chloride 98 mmol/L (98-107) 04/08/18 20:45 Carbon Dioxide 27.1 mmol/L (21-32) 04/08/18 20:45 BUN 35 mg/dL (7-18) H 04/08/18 20:45 Creatinine 1.56 mg/dL (0.55-1.02) H 04/08/18 20:45 Est GFR (MDRD) Af Amer 41 (>60) L 04/08/18 20:45 Est GFR (MDRD) Non-Af 34 (>60) L 04/08/18 20:45 Glucose 155 mg/dL (65-99) H 04/08/18 20:45 Calcium 9.6 mg/dL (8.5-10.1) 04/08/18 20:45 Corrected Calcium TNP 04/08/18 20:45 Total Bilirubin 0.30 mg/dL (0.2-1.0) 04/08/18 20:45 AST 17 Units/L (15-37) 04/08/18 20:45 ALT 23 Units/L (12-78) 04/08/18 20:45 Alkaline Phosphatase 82 Units/L (46-116) 04/08/18 20:45 Creatine Kinase 203 Units/L (26-192) H 04/08/18 20:45 CK-MB (CK-2) 3.0 ng/mL (0-4.0) 04/08/18 20:45 CK/CKMB % Calc 1.5 % (<4) 04/08/18 20:45 Troponin I 0.02 ng/mL (0-1.5) 04/08/18 20:45 Total Protein 7.2 g/dL (6.4-8.2) 04/08/18 20:45 Albumin 3.7 g/dL (3.4-5.0) 04/08/18 20:45 Globulin 3.5 g/dL (2.5-4.5) 04/08/18 20:45 Albumin/Globulin Ratio 1.1 Ratio (1.1-2.1) 04/08/18 20:45 Specimen Type Clean catch urine 04/08/18 15:07 Urine Color Yellow (YELLOW) 04/08/18 15:07 Urine Appearance Clear (CLEAR) 04/08/18 15:07 Urine pH 7.0 (5.0 - 8.0) 04/08/18 15:07 Ur Specific [place] 1.005 (1.000-1.030) 04/08/18 15:07 Urine Protein 1+ (NEGATIVE) 04/08/18 15:07 Urine Glucose (UA) Negative (NEGATIVE) 04/08/18 15:07 Urine Ketones Negative (NEGATIVE) 04/08/18 15:07 Urine Occult Blood Negative (NEGATIVE) 04/08/18 15:07 Urine Nitrite Negative (NEGATIVE) 04/08/18 15:07 Urine Bilirubin Negative (NEGATIVE) 04/08/18 15:07 Urine Urobilinogen Normal (NORMAL) 04/08/18 15:07 Ur Leukocyte Esterase 2+ (NEGATIVE) 04/08/18 15:07 Urine RBC None seen /HPF (NONE SEEN) 04/08/18 15:07 Urine WBC 0-2 /HPF (NONE SEEN) 04/08/18 15:07 Ur Squamous Epith Cells Negative /HPF (NEGATIVE) 04/08/18 15:07 Urine Bacteria Negative /HPF (NEGATIVE) 04/08/18 15:07 Ur Culture Indicated? No/not indicated 04/08/18 15:07 XRAY XRAY Interpreted by: Radiologist XRAY Findings: REPORT DISCUSS WITH PATIENT. Diagnosis Discharge Problem: Knee sprain Qualifiers: Encounter type: initial encounter Involved ligament of knee: unspecified ligament Laterality: unspecified laterality Qualified Code(s): S83.90XA - Sprain of unspecified site of unspecified knee, initial encounter Instructions Instructions: Knee Sprain, Adult
[2018-04-08 15:15] LABS: BILIRUBIN,URINE NEGATIVE (NEGATIVE); BLOOD/HEMOGLOBIN,URINE NEGATIVE (NEGATIVE); GLUCOSE, URINE NEGATIVE (NEGATIVE); KETONES,URINE NEGATIVE (NEGATIVE); LEUKOCYTE ESTERASE ,URINE 2+ (NEGATIVE); NITRITES,URINE NEGATIVE (NEGATIVE); PROTEIN,URINE 1+ (NEGATIVE); UROBILINOGEN,URINE NORMAL (NORMAL)
[2018-04-08 15:25] LABS: APPEARANCE,URINE CLEAR (CLEAR); COLOR,URINE YELLOW (YELLOW)
[2018-04-08 15:26] LABS: BACTERIA,URINE NEGATIVE /HPF (NEGATIVE); RBC,URINE NONE SEEN /HPF (NONE SEEN); SQUAMOUS EPITHELIAL CELL,UR NEGATIVE /HPF (NEGATIVE)
--- NOTE | 2018-04-08 15:37 | RAD ---
HISTORY: Pain status post fall. Study: Two views of the right knee. Comparison: None. Findings: No acute cortical disruption or dislocation can be identified. No significant soft tissue swelling or injury can be seen. Moderate tricompartmental osteoarthritis. Diffuse osteopenia. IMPRESSION: No acute osseous abnormality. Reported By:
--- NOTE | 2018-04-08 15:37 | RAD ---
HISTORY: Pain after fall, edema Study: Two views left knee Comparison: None Findings: Christensen compartmental osteoarthritic changes are present. No fracture or dislocation is identified. No significant joint effusion. There is nonspecific soft tissue edema present. IMPRESSION: 1. No acute osseous abnormality. Reported By:
[2018-04-08 20:59] LABS: BASOPHILS # (AUTO) 0.1 X10^3/uL (0.0-0.1); BASOPHILS % (AUTO) 0.7 % (0.2-1.0); EOSINOPHILS % (AUTO) 0.2 % (0.9-2.9); HEMATOCRIT 39.2 % (36.0-47.0); HEMOGLOBIN 13.1 g/dL (12.0-16.0); LYMPHOCYTES # (AUTO) 1.2 X10^3/uL (1.3-2.9); LYMPHOCYTES % (AUTO) 10.3 % (21.0-51.0); MEAN CORPUSCULAR HEMOGLOBIN 32.4 pg (27.0-34.0); MEAN CORPUSCULAR HGB CONC 33.3 g/dL (33.0-35.0); MEAN CORPUSCULAR VOLUME 97.2 fL (80.0-100.0); MEAN PLATELET VOLUME 8.4 fL (7.4-11.0); MONOCYTES % (AUTO) 8.7 % (0.0-13.0); NEUTROPHILS # (AUTO) 9.4 x10^3/uL (2.2-4.8); NEUTROPHILS % (AUTO) 80.1 % (42.0-75.0); PLATELET COUNT 173 X10^3/uL (150.0-450.0); RED BLOOD COUNT 4.03 X10^6/uL (3.5-5.4); RED CELL DISTRIBUTION WIDTH 13.2 % (11.6-16.5); WHITE BLOOD COUNT 11.7 X10^3/uL (3.6-10.0)
[2018-04-08 21:22] LABS: ALANINE AMINOTRANSFERASE 23 Units/L (12-78); ALBUMIN 3.7 g/dL (3.4-5.0); ALKALINE PHOSPHATASE 82 Units/L (46-116); ASPARTATE AMINO TRANSFERASE 17 Units/L (15-37); BLOOD UREA NITROGEN 35 mg/dL (7-18); CALCIUM 9.6 mg/dL (8.5-10.1); CARBON DIOXIDE 27.1 mmol/L (21-32); CHLORIDE 98 mmol/L (98-107); CKMB % 1.5 % (<4); COR NA(FOR HYPERGLY) 134 mmol/L (136-145); CREATINE KINASE 203 Units/L (26-192); CREATININE 1.56 mg/dL (0.55-1.02); SODIUM 133 mmol/L (136-145); TOTAL PROTEIN 7.2 g/dL (6.4-8.2); TROPONIN I 0.02 ng/mL (0-1.5); eGFR NON BLACK RACES 34 (>60)
--- NOTE | 2018-04-08 21:48 | RAD ---
HIP RADIOGRAPHS CLINICAL HISTORY: 82-year-old female status post fall twice with right hip pain. COMPARISON: None. FINDINGS: 2 views of the right hip were obtained. Study is limited secondary to patient body habitus and excessive quantum mottle. These demonstrate no acute fracture or malalignment. The femoral head is round and is well seated within the acetabulum. The joint spaces are maintained. The mineralization is maintained. There is no aggressive bone lesion or abnormal periosteal reaction. There is no soft tissue calcification or gas. IMPRESSION: No definitive radiographic evidence of right rib fracture. Reported By:
[2018-04-08] MEDS ORDERED: TORADOL 15 MG VIAL ONE (22:18)
[2018-04-08] MEDS ORDERED: TORADOL 15 MG VIAL IVP ONE (22:21)
[2018-04-08] MEDS ORDERED: XANAX PO PRN (23:31)
[2018-04-08] MEDS ORDERED: NORCO 10/325 TAB PO PRN (23:31)
[2018-04-09] MEDS ORDERED: XANAX PO PRN (00:25)
[2018-04-09] MEDS ORDERED: KLONOPIN TAB 1 MG ONE (00:34)
[2018-04-09] MEDS ORDERED: SEROquel TAB 100 MG PO ONE (00:34)
[2018-04-09] MEDS ORDERED: ZOCOR TAB 40 MG PO ONE (00:34)
[2018-04-09] MEDS ORDERED: XANAX ONE (00:35)
[2018-04-09] MEDS: PriLOSEC PO ONE ×2 (00:50→01:04)
[2018-04-09] MEDS: COLACE CAP 100 MG PO SCH ×2 (00:50→21:51)
[2018-04-09] MEDS ORDERED: XANAX PO SCH (01:00)
[2018-04-09] MEDS ORDERED: MAALOX or MYLANTA PO PRN (01:13)
[2018-04-09] MEDS ORDERED: MAALOX or MYLANTA ONE (01:15)
[2018-04-09 01:42] VITALS: BMI 28.8
[2018-04-09 06:40] LABS: BASOPHILS % (AUTO) 0.2 % (0.2-1.0); EOSINOPHILS # (AUTO) 0.1 x10^3/uL (0.0-0.2); EOSINOPHILS % (AUTO) 0.7 % (0.9-2.9); HEMATOCRIT 35.6 % (36.0-47.0); LYMPHOCYTES # (AUTO) 1.5 X10^3/uL (1.3-2.9); LYMPHOCYTES % (AUTO) 20.6 % (21.0-51.0); MEAN CORPUSCULAR HEMOGLOBIN 32.5 pg (27.0-34.0); MEAN CORPUSCULAR HGB CONC 33.8 g/dL (33.0-35.0); MEAN CORPUSCULAR VOLUME 96.2 fL (80.0-100.0); MEAN PLATELET VOLUME 8.4 fL (7.4-11.0); MONOCYTES # (AUTO) 0.8 x10^3/uL (0.3-0.8); MONOCYTES % (AUTO) 10.8 % (0.0-13.0); NEUTROPHILS % (AUTO) 67.7 % (42.0-75.0); PLATELET COUNT 142 X10^3/uL (150.0-450.0); WHITE BLOOD COUNT 7.4 X10^3/uL (3.6-10.0)
[2018-04-09 06:56] LABS: CKMB % 1.2 % (<4); CREATINE KINASE 161 Units/L (26-192); TROPONIN I < 0.02 ng/mL (0-1.5)
[2018-04-09 07:08] LABS: ALANINE AMINOTRANSFERASE 20 Units/L (12-78); ALBUMIN 3.1 g/dL (3.4-5.0); ALKALINE PHOSPHATASE 61 Units/L (46-116); ASPARTATE AMINO TRANSFERASE 16 Units/L (15-37); BLOOD UREA NITROGEN 35 mg/dL (7-18); CARBON DIOXIDE 25.9 mmol/L (21-32); CHLORIDE 100 mmol/L (98-107); COR CA(FOR HYPOALB) 9.7 mg/dL (8.5-10.1); CREATININE 1.39 mg/dL (0.55-1.02); MAGNESIUM 2.1 mg/dL (1.7-2.9); SODIUM 135 mmol/L (136-145); TOTAL PROTEIN 6.1 g/dL (6.4-8.2); eGFR NON BLACK RACES 39 (>60)
[2018-04-09] MEDS ORDERED: LEXAPRO ONE (07:45)
[2018-04-09] MEDS: NORCO 10/325 TAB PO PRN ×3 (07:52→17:20)
[2018-04-09] MEDS: PriLOSEC PO SCH ×2 (08:03→21:52)
[2018-04-09] MEDS: CYMBALTA PO SCH (08:03)
[2018-04-09] MEDS: MAXZIDE 37.5/25 MG PO SCH (08:04)
[2018-04-09] MEDS: PATIENT'S HOME MEDICATION (Letrozole [Femara] 2.5 MG) PO SCH (08:05)
[2018-04-09] MEDS: IRBESARTAN PO SCH (08:05)
[2018-04-09] MEDS ORDERED: LEXAPRO PO SCH (09:00)
[2018-04-09 12:04] LABS: CREATINE KINASE 149 Units/L (26-192); CREATINE KINASE MB 1.5 ng/mL (0-4.0); TROPONIN I < 0.02 ng/mL (0-1.5)
--- NOTE | 2018-04-09 14:36 | DR.H&P ---
H&P - History & Physical for Day of: H&P Date: 04/08/18 - Chief Complaint Chief Complaint: KNEE PAIN, WEAKNESS, FALLS - History of Present Illness History of Present Illness: IS A 82 YEAR OLD PATIENT OF OURS WHO PRESENTED TO THE EMERGENCY ROOM WITH COMPLAINTS OF BILATERAL KNEE PAIN AND WEAKNESS AFTER FALLING. SHE REPORTS FALLING AT HOME TWO DAYS PRIOR TO ARRIVAL. SHE REPORTS LIVING AT HOME ALONE WITHOUT ANY ASSISTANCE. ON ARRIVAL, SHE IS NOTED WITH SWELLING TO THE BILATERAL KNEES. ON ARRIVAL, VITALS WERE 98.6-140-20-93%-155/89. LABS WERE OBTAINED. ABNORMAL LAB VALUES INCLUDE THE FOLLOWING: WBC 11.7, SODIUM 133, BUN 35, CREATININE 1.56, GLUCOSE 155, CREATINE KINASE 203. URINALYSIS REVEALED: WBC 0-2, RBC NON SEEN, LEUKOCYTES 2+, BACTERIA NEGATIVE. BILATERAL KNEE XRAYS WERE OBTAINED. NO ACUTE OSSEOUS ABNORMALITY IS NOTED TO EITHER KNEE. A RIGHT HIP XRAY WAS OBTAINED AND REVEALED NO DEFINITIVE RADIOGRAPHIC EVIDENCE OF RIGHT HIP FRACTURE. EKG REVEALED SINUS RHYTHM WITH HR 83. SHE WAS GIVEN TORADOL 15MG IV X 1 DOSE IN THE ER WITH MILD IMPROVEMENT IN PAIN. SHE WAS ADMITTED FOR FURTHER EVALUATION AND TREAMENT OF LOWER EXTREMITY PAIN AND GENERALIZED WEAKNESS. WE PLAN TO FOLLOW UP WITH AM LABS AND CONTINUE TO MONITOR. - Past Medical History Past Medical History: Hypertension, Anxiety - Past Surgical History Surgical History: Tonsillectomy, Other - Family History Family Medical History: Coronary Artery Disease, Hypertension - Social History Does patient currently use any type of tobacco product: No Have you used tobacco products in the last 12 months: No Type of Tobacco Use: None Does any household member use tobacco: No Alcohol Use: None Drug Use: None - Medications Home Medications: No Known Drug Allergies Allergy (Verified 04/08/18 20:13) CONTINUE taking the following medications alprazolam 1 mg PO PRN PRN 04/08/18 [History] docusate sodium [Stool Softener] 100 mg PO QHS 04/08/18 [History] duloxetine 30 mg PO DAILY 04/08/18 [History] hydrocodone-acetaminophen 1 tab PO PRN PRN 04/08/18 [History] triamterene-hydrochlorothiazid 1 cap PO DAILY 04/08/18 [History] - Review of Systems Constitutional: See HPI, Weakness Eyes: No Symptoms Reported ENT: No Symptoms Reported Respiratory: No Symptoms Reported Cardiovascular: No Symptoms Reported Gastrointestinal: No Symptoms Reported Genitourinary: No Symptoms Reported Musculoskeletal: See HPI, Other (BILATERAL KNEE PAIN, RIGHT HIP PAIN ) Skin: No Symptoms Reported Neurological: Weakness - Physical Exam Vital Signs: Temperature 97.6 F Pulse Rate [Right Radial] 92 Pulse Rate 82 Respiratory Rate 22 Blood Pressure [Left Arm] 124/61 Blood Pressure [Right Arm] 192/85 Blood Pressure 157/65 O2 Sat by Pulse Oximetry 99 Oriented: Normal Eyes: Normal Ear: Normal Nose: Normal Throat: Normal Respiratory: Diminished Throughout Cardiovascular: Tachycardia. negative: S3, S4, Murmur : Normal Auscultation: Bowel Sounds: Normal Palpation: Normal Tenderness: Normal Skin: Normal Musculoskeletal: Right, Left, Hip, Knee, Swelling, Tender Psychiatric: Normal Mood Description: Calm Affect: Normal Speech Pattern: Clear - Assessment/Plan (1) Generalized weakness Status: Acute Plan: ADMIT, PHYSICAL THERAPY, CONTINUE TO MONITOR (2) Knee sprain Qualifiers: Encounter type: initial encounter Involved ligament of knee: unspecified ligament Laterality: unspecified laterality Qualified Code(s): S83.90XA - Sprain of unspecified site of unspecified knee, initial encounter Status: Acute Plan: ADMIT, NORCO PRN, CONTINUE TO MONITOR - Allergies Allergies/Adverse Reactions: Allergies Allergy/AdvReac Type Severity Reaction Status Date / Time No Known Drug Allergies Allergy Verified 04/08/18 20:13
[2018-04-09] MEDS ORDERED: SEROquel TAB 100 MG PO SCH (21:00)
[2018-04-09] MEDS ORDERED: ZOCOR TAB 40 MG PO SCH (21:00)
[2018-04-09] MEDS ORDERED: KLONOPIN TAB 1 MG PO SCH (21:00)
[2018-04-10] MEDS: NORCO 10/325 TAB PO PRN ×2 (03:43→11:18)
[2018-04-10 06:30] LABS: BASOPHILS % (AUTO) 0.3 % (0.2-1.0); EOSINOPHILS # (AUTO) 0.1 x10^3/uL (0.0-0.2); EOSINOPHILS % (AUTO) 1.3 % (0.9-2.9); HEMATOCRIT 35.1 % (36.0-47.0); HEMOGLOBIN 11.8 g/dL (12.0-16.0); LYMPHOCYTES # (AUTO) 1.4 X10^3/uL (1.3-2.9); LYMPHOCYTES % (AUTO) 17.5 % (21.0-51.0); MEAN CORPUSCULAR HEMOGLOBIN 32.5 pg (27.0-34.0); MEAN CORPUSCULAR HGB CONC 33.6 g/dL (33.0-35.0); MEAN CORPUSCULAR VOLUME 96.8 fL (80.0-100.0); MEAN PLATELET VOLUME 8.4 fL (7.4-11.0); MONOCYTES # (AUTO) 0.6 x10^3/uL (0.3-0.8); MONOCYTES % (AUTO) 7.5 % (0.0-13.0); NEUTROPHILS # (AUTO) 6.1 x10^3/uL (2.2-4.8); NEUTROPHILS % (AUTO) 73.4 % (42.0-75.0); PLATELET COUNT 139 X10^3/uL (150.0-450.0); RED BLOOD COUNT 3.62 X10^6/uL (3.5-5.4); RED CELL DISTRIBUTION WIDTH 12.9 % (11.6-16.5); WHITE BLOOD COUNT 8.3 X10^3/uL (3.6-10.0)
[2018-04-10 06:46] LABS: CALCIUM 8.8 mg/dL (8.5-10.1); CARBON DIOXIDE 26.7 mmol/L (21-32); COR CA(FOR HYPOALB) 9.6 mg/dL (8.5-10.1); CREATININE 1.62 mg/dL (0.55-1.02); TOTAL PROTEIN 6.2 g/dL (6.4-8.2)
[2018-04-10] MEDS: MAXZIDE 37.5/25 MG PO SCH (09:54)
[2018-04-10] MEDS: PriLOSEC PO SCH (09:55)
[2018-04-10] MEDS: IRBESARTAN PO SCH (09:59)
[2018-04-10] MEDS: PATIENT'S HOME MEDICATION (Letrozole [Femara] 2.5 MG) PO SCH (10:00)
[2018-04-10] MEDS: CYMBALTA PO SCH (10:02)
[2018-04-10 11:37] VITALS: BP 135/51
--- NOTE | 2018-04-21 20:41 | PCM.PROG ---
Progress Note - Progress Note for Day of Date of Exam: 04/09/18 - Subjective Subjective: WAS ADMITTED FOR GENERALIZED WEAKNESS AND KNEE PAIN FOLLOWING A FALL AT HOME. TODAY, SHE IS ALERT AND ORIENTED, SITTING ON THE SIDE OF THE BED ON MORNING ROUNDS. SHE CONTINUES WITH WEAKNESS AND BILATERAL KNEE PAIN. ON EXAMINATION, HEART IS REGULAR IN RATE AND RHYTHM. BILATERAL LUNGS ARE NOTED WITH DIMINISHED LUNG SOUNDS THROUGHOUT. ABDOMEN IS ROUND, SOFT, AND NON- TENDER WITH NORMAL BOWEL SOUNDS NOTED IN ALL QUADRANTS. HER VITALS THIS MORNING ARE 98.4-92-18-96%-124/61. LABS WERE OBTAINED. ABNORMAL LAB VALUES INCLUDE THE FOLLOWING: HCT 35.6, SODIUM 135, BUN 35, CREATININE 1.39, GLUCOSE 108, TOTAL PROTEIN 6.1, ALBUMIN 3.1. CARDIAC ENZYMES AND EKGS HAVE BEEN WITHIN NORMAL LIMITS. TODAY, WE WILL HAVE PHYSICAL THERAPY EVALUATE PATIENT. OTHERWISE, WE WILL CONTINUE WITH PAIN MANAGEMENT AND CURRENT PLAN OF CARE. WE PLAN TO FOLLOW UP WITH AM LABS AND CONTINUE TO MONITOR. - Past Medical Family Social History Past Med/Fam/Surg Hx: No changes since H&P Allergies: Allergies No Known Drug Allergies Allergy (Verified 04/08/18 20:13) - Review of Systems ROS: No change since H&P - Vital Signs and I&O's Vital Signs: Temperature 97.6 F Pulse Rate [Right Radial] 89 Pulse Rate 82 Respiratory Rate 18 Blood Pressure [Left Arm] 135/51 Blood Pressure [Right Arm] 192/85 Blood Pressure 157/65 O2 Sat by Pulse Oximetry 99 - Physical Exam Oriented: Normal Eyes: Normal Ear: Normal Nose: Normal Throat: Normal Respiratory: Generalized, Diminished Cardiovascular: Tachycardia. negative: S3, S4, Murmur : Normal Auscultation: Bowel Sounds: Normal Palpation: Normal Tenderness: Normal Skin: Normal Musculoskeletal: Right, Left, Hip, Knee, Swelling, Tender Psychiatric: Normal Mood Description: Calm Affect: Normal Speech Pattern: Clear, Appropriate - Laboratory and Diagnostics Result Diagrams: 04/10/18 05:36 04/10/18 05:36 Labs: Laboratory WBC 8.3 X10^3/uL (3.6-10.0) 04/10/18 05:36 RBC 3.62 X10^6/uL (3.5-5.4) 04/10/18 05:36 Hgb 11.8 g/dL (12.0-16.0) L 04/10/18 05:36 Hct 35.1 % (36.0-47.0) L 04/10/18 05:36 MCV 96.8 fL (80.0-100.0) 04/10/18 05:36 MCH 32.5 pg (27.0-34.0) 04/10/18 05:36 MCHC 33.6 g/dL (33.0-35.0) 04/10/18 05:36 RDW 12.9 % (11.6-16.5) 04/10/18 05:36 Plt Count 139 X10^3/uL (150.0-450.0) L 04/10/18 05:36 MPV 8.4 fL (7.4-11.0) 04/10/18 05:36 Neut % (Auto) 73.4 % (42.0-75.0) 04/10/18 05:36 Lymph % (Auto) 17.5 % (21.0-51.0) L 04/10/18 05:36 Person % (Auto) 7.5 % (0.0-13.0) 04/10/18 05:36 Eos % (Auto) 1.3 % (0.9-2.9) 04/10/18 05:36 Baso % (Auto) 0.3 % (0.2-1.0) 04/10/18 05:36 Neut # (Auto) 6.1 x10^3/uL (2.2-4.8) H 04/10/18 05:36 Lymph # (Auto) 1.4 X10^3/uL (1.3-2.9) 04/10/18 05:36 Person # (Auto) 0.6 x10^3/uL (0.3-0.8) 04/10/18 05:36 Eos # (Auto) 0.1 x10^3/uL (0.0-0.2) 04/10/18 05:36 Baso # (Auto) 0.0 X10^3/uL (0.0-0.1) 04/10/18 05:36 Absolute Nucleated RBC 0.0 /100WBC 04/10/18 05:36 Sodium 134 mmol/L (136-145) L 04/10/18 05:36 Corrected Sodium 134 mmol/L (136-145) L 04/10/18 05:36 Potassium 4.3 mmol/L (3.5-5.1) 04/10/18 05:36 Chloride 99 mmol/L (98-107) 04/10/18 05:36 Carbon Dioxide 26.7 mmol/L (21-32) 04/10/18 05:36 BUN 33 mg/dL (7-18) H 04/10/18 05:36 Creatinine 1.62 mg/dL (0.55-1.02) H 04/10/18 05:36 Est GFR (MDRD) Af Amer 39 (>60) L 04/10/18 05:36 Est GFR (MDRD) Non-Af 32 (>60) L 04/10/18 05:36 Glucose 118 mg/dL (65-99) H 04/10/18 05:36 Calcium 8.8 mg/dL (8.5-10.1) 04/10/18 05:36 Corrected Calcium 9.6 mg/dL (8.5-10.1) 04/10/18 05:36 Magnesium 2.1 mg/dL (1.7-2.9) 04/09/18 05:20 Total Bilirubin 0.60 mg/dL (0.2-1.0) 04/10/18 05:36 AST 16 Units/L (15-37) 04/10/18 05:36 ALT 20 Units/L (12-78) 04/10/18 05:36 Alkaline Phosphatase 66 Units/L (46-116) 04/10/18 05:36 Creatine Kinase 149 Units/L (26-192) 04/09/18 11:20 CK-MB (CK-2) 1.5 ng/mL (0-4.0) 04/09/18 11:20 CK/CKMB % Calc 1.0 % (<4) 04/09/18 11:20 Troponin I < 0.02 ng/mL (0-1.5) 04/09/18 11:20 Total Protein 6.2 g/dL (6.4-8.2) L 04/10/18 05:36 Albumin 3.0 g/dL (3.4-5.0) L 04/10/18 05:36 Globulin 3.2 g/dL (2.5-4.5) 04/10/18 05:36 Albumin/Globulin Ratio 0.9 Ratio (1.1-2.1) L 04/10/18 05:36 Specimen Type Clean catch urine 04/08/18 15:07 Urine Color Yellow (YELLOW) 04/08/18 15:07 Urine Appearance Clear (CLEAR) 04/08/18 15:07 Urine pH 7.0 (5.0 - 8.0) 04/08/18 15:07 Ur Specific [place] 1.005 (1.000-1.030) 04/08/18 15:07 Urine Protein 1+ (NEGATIVE) 04/08/18 15:07 Urine Glucose (UA) Negative (NEGATIVE) 04/08/18 15:07 Urine Ketones Negative (NEGATIVE) 04/08/18 15:07 Urine Occult Blood Negative (NEGATIVE) 04/08/18 15:07 Urine Nitrite Negative (NEGATIVE) 04/08/18 15:07 Urine Bilirubin Negative (NEGATIVE) 04/08/18 15:07 Urine Urobilinogen Normal (NORMAL) 04/08/18 15:07 Ur Leukocyte Esterase 2+ (NEGATIVE) 04/08/18 15:07 Urine RBC None seen /HPF (NONE SEEN) 04/08/18 15:07 Urine WBC 0-2 /HPF (NONE SEEN) 04/08/18 15:07 Ur Squamous Epith Cells Negative /HPF (NEGATIVE) 04/08/18 15:07 Urine Bacteria Negative /HPF (NEGATIVE) 04/08/18 15:07 Ur Culture Indicated? No/not indicated 04/08/18 15:07 - Plan (1) Generalized weakness Status: Acute Plan: ADMIT, PHYSICAL THERAPY, CONTINUE TO MONITOR (2) Knee sprain Status: Acute Qualifiers: Encounter type: initial encounter Involved ligament of knee: unspecified ligament Laterality: unspecified laterality Qualified Code(s): S83.90XA - Sprain of unspecified site of unspecified knee, initial encounter Plan: ADMIT, NORCO PRN, CONTINUE TO MONITOR
== END 2018-04-10 13:30 | disposition home health service (06) ==
LOC: ER 13:55 → ICU 13:55 → ER 16:08 → ICU 23:43 → MED/SURG 04-09 15:50
PROVIDERS: ADMIT Internal Medicine; ATTEND Internal Medicine
CPT/HCPCS: 36415; 73501; 73560; 80053; 81001; 82550; 82553; 83735; 84484; 85025; 93005; 96365; 96374; 97112; 97116; 97162; 97166; 99282; 99284; A4216; A4222; G0378; J1885